=== PATIENT | male | born 1965 | race Two or more races ===

== ENCOUNTER 2018-11-25 14:42 | Outpatient (CLI) | payer OTHER ==
[~2018-11-25 14:42] MED LIST: NASONEX17 GM NASAL; PHENAGIL TABLE1 EACH PO
== END 2018-11-25 14:51 | disposition home or self-care (01) ==
LOC: RAD 14:42
DX: M54.5 Low back pain (principal)

== ENCOUNTER 2019-10-08 09:11 | Outpatient (CLI) | payer OTHER | END 2019-10-08 09:20 | disposition home or self-care (01) | LOC: LAB 09:11 | DX: R58 Hemorrhage, not elsewhere classified (principal); Z01.812 Encounter for preprocedural laboratory examination ==

== ENCOUNTER → 2019-10-09 | Outpatient (CLI) | payer OTHER | END | disposition home or self-care (01) | LOC: RAD 08:29 | DX: Z01.811 Encounter for preprocedural respiratory examination (principal) ==

== ENCOUNTER → 2020-05-02 | Outpatient (CLI) | payer OTHER | END | disposition home or self-care (01) | LOC: RX STUDY 10:24 | PROVIDERS: ATTEND Internal Medicine Gastroenterology | DX: K21.9 Gastro-esophageal reflux disease without esophagitis (principal) ==

== ENCOUNTER → 2020-05-31 | Outpatient (CLI) | payer OTHER | END | disposition home or self-care (01) | LOC: TOM 10:02 | PROVIDERS: ATTEND Surgery Plastic and Reconstructive Surgery | DX: R10.84 Generalized abdominal pain (principal) ==

== ENCOUNTER 2020-08-03 09:06 | Outpatient (CLI) | payer OTHER | END 2020-08-03 09:13 | disposition home or self-care (01) | LOC: NUCLEAR 09:06 | DX: K80.18 Calculus of gallbladder with other cholecystitis without obstruction (principal) | CPT/HCPCS: 78227; A9537 ==

== ENCOUNTER → 2021-09-04 07:16 | Outpatient (CLI) | payer OTHER | END | disposition home or self-care (01) | LOC: NUCLEAR 07:00 | PROVIDERS: ATTEND Internal Medicine Gastroenterology | DX: K31.84 Gastroparesis (principal) | CPT/HCPCS: 78264; A9541 ==